=== PATIENT | male | born 1950 | race Caucasian/White ===

== ENCOUNTER 2024-02-05 12:40 | Emergency (ER) | payer MEDICARE, OTHER, SELFPAY ==
[2024-02-05] VITALS (14 sets, daily range): BP systolic 97–122; BP diastolic 62–90; PULSE 56–86; RESP 18–24; TEMP 36.6–36.7; O2SAT 93–100; BMI 22.4
--- NOTE | 2024-02-05 12:41 | ED_ITS ---
Discharge Plan Disposition Patient Disposition: Xfer Other Referrals Follow up/Referrals: Provider,Referral, [Primary Care Provider] - See instructions Clinical Impressions Clinical Impression: Acute hypoxic respiratory failure, PVD (peripheral vascular disease), Acute exacerbation of chronic obstructive pulmonary disease, Bilateral lower leg cellulitis, JAQUELIN (acute kidney injury), Uremic encephalopathy Stand Alone Forms Stand Alone Forms: Transfer Record - ED Instructions Patient Instructions: DI for Laceration Repair Discharge ED Provider: Jacques Cormier Adult HPI <Jacques Cormier MD - Last Filed: 02/06/24 07:21> General Chief complaint: Wound/Laceration Stated complaint: wound Time Seen by Provider: 02/05/24 12:41 History of Present Illness HPI narrative: Patient presents after being found altered at home after unspecified amount of time. History limited secondary to acuity of patient condition and altered mental status. Medical history unknown. Patient states he takes blood thinners sometimes. Patient denies any pain at this time. Patient was found reportedly by neighbors who noticed lower extremity wounds covered with maggots. He does report recent fall although time in which this occurred unknown. Denies any abdominal pain. Denies any neck pain, denies any chest pain. Please note that above description of symptoms, in this electronic medical record under categorization of recalled from ER triage doctor by RN are reflective of an initial nursing assessment, however, is not reflective of my full history and physical exam that was personally taken and clarified. Consequentially, this preceding description of symptoms, which may include the patient's categorized chief complaint in the EMR, do not reflect my personal clinical impression, and the ultimate description of history of present illness and patient stated complaints should be deferred to this section of the note. Unless stated otherwise or congruent with this section of the note, additional signs, symptoms, or incongruence should be interpreted as inaccurate with my clinical impression. Related Data Allergies Allergy/AdvReac Type Severity Reaction Status Date / Time Unable to Assess Allergy Verified 02/05/24 13:34 PFSH <Jacques Cormier MD - Last Filed: 02/06/24 07:21> PFS Disclaimer: The information contained in this section may have been updated after the patient was seen, as this information can be updated by other users. Social History (Updated 02/05/24 @ 17:23 by Pasha Medina MD) Smoking Status: Current every day smoker alcohol intake: former current occupational status: unemployed Travel in the last 8 weeks: None <Jacques Cormier MD - Last Filed: 02/06/24 07:21> ROS Obtained: Yes other As per HPI Physical Exam <Jacques Cormier MD - Last Filed: 02/06/24 07:21> General Comment: Disoriented, ill-appearing Head Head exam: atraumatic and normocephalic Eye Eye exam: Present other (Left periorbital ecchymosis) Neck Neck exam: Present normal inspection Chest Chest inspection: Present normal inspection and symmetric chest wall rise Respiratory Respiratory exam: Present normal lung sounds bilaterally and wheezes Cardiovascular Cardiovascular exam: Present normal rhythm and tachycardia Abdominal Exam Abdominal exam: Present soft; Absent tenderness Neurological Exam Neurological exam: Present alert Skin Skin exam: Present other (Wounds on bilateral feet, legs, erythema, covered with maggots, diffusely tender to palpation.) <Haile Jennings MD - Last Filed: 02/05/24 17:52> General General appearance: in no apparent distress Medical Decision Making <Jacques Cormier MD - Last Filed: 02/06/24 07:21> Medical Records Medical records reviewed: Yes I reviewed the patient's medical records. [place] Inquiry Pt receiving controlled substance: No Vital Signs: 02/05/24 12:40 02/05/24 12:51 02/05/24 13:05 Temperature 97.9 F Temperature Source Oral Pulse Rate 56 L 77 Pulse Rate [Left Radial] 81 Respiratory Rate 19 Blood Pressure 108/67 L 116/75 Blood Pressure [Right Arm] 116/75 Blood Pressure Mean 82 Blood Pressure Mean [Right Arm] 88 02 Sat by Pulse Oximetry 100 100 100 Oxygen Delivery Method Room Air Oxygen Flow Rate (LPM) 02/05/24 13:30 02/05/24 14:00 02/05/24 15:17 Temperature Temperature Source Pulse Rate 81 77 85 Pulse Rate [Left Radial] Respiratory Rate Blood Pressure 116/71 111/71 101/67 L Blood Pressure [Right Arm] Blood Pressure Mean Blood Pressure Mean [Right Arm] 02 Sat by Pulse Oximetry 100 100 93 L Oxygen Delivery Method Oxygen Flow Rate (LPM) 02/05/24 15:30 02/05/24 16:00 02/05/24 16:31 Temperature Temperature Source Pulse Rate 82 84 86 Pulse Rate [Left Radial] Respiratory Rate 24 24 23 Blood Pressure 115/81 121/72 122/90 Blood Pressure [Right Arm] Blood Pressure Mean Blood Pressure Mean [Right Arm] 02 Sat by Pulse Oximetry 97 97 96 Oxygen Delivery Method Oxygen Flow Rate (LPM) 02/05/24 17:00 02/05/24 17:30 02/05/24 18:01 Temperature Temperature Source Pulse Rate 86 85 Pulse Rate [Left Radial] Respiratory Rate 22 23 22 Blood Pressure 118/75 121/79 100/63 L Blood Pressure [Right Arm] Blood Pressure Mean Blood Pressure Mean [Right Arm] 02 Sat by Pulse Oximetry 97 96 Oxygen Delivery Method Oxygen Flow Rate (LPM) 02/05/24 19:00 02/05/24 20:54 Temperature 98.0 F Temperature Source Pulse Rate 80 Pulse Rate [Left Radial] Respiratory Rate 18 20 Blood Pressure 110/76 97/62 L Blood Pressure [Right Arm] Blood Pressure Mean Blood Pressure Mean [Right Arm] 02 Sat by Pulse Oximetry Oxygen Delivery Method Nasal Cannula Oxygen Flow Rate (LPM) 4 Lab Data Lab Results 02/05/24 12:50: WBC 10.0, RBC 4.01 L, Hgb 12.8 L, Hct 38.2 L, MCV 95.1 H, MCH 31.9 H, MCHC 33.5, RDW 15.5, Plt Count 146, MPV 9.2, Neut % (Auto) 91.8 H, Lymph % (Auto) 4.7 L, [place] % (Auto) 2.8, Eos % (Auto) 0.6, Baso % (Auto) 0.1, Neut # (Auto) 9.2 H, Lymph # (Auto) 0.5 L, [place] # (Auto) 0.3, Eos # (Auto) 0.1, Baso # (Auto) 0.0, Total Counted 100, Neutrophils % (Manual) 96 H, Lymphocytes % (Manual) 2 L, Monocytes % (Manual) 2, Platelet Estimate Slight decrease, RBC Morphology Normal, PT 10.5, INR 0.93, Sodium 126 L, Potassium 5.2 H, Chloride 94 L, Carbon Dioxide 20 L, Anion Gap 17.2 H, BUN 118 H*, Creatinine 2.50 H, Estimated Creat Clear 27, Estimated GFR 25 L, Est GFR ( Amer) 31 L, G lucose 127 H, Lactate 3.8 H, Calcium 9.1, Magnesium 2.4 H, Total Bilirubin 1.7 H , AST 33, ALT 41, Alkaline Phosphatase 91, Total Creatine Kinase 94, NT-Pro-B Natriuret Pep 56635 H, Total Protein 6.5, Albumin 3.4 L, Globulin 3.1, Albumin/Globulin Ratio 1.1, TSH 2.61, Free T4 0.96, Salicylates < 1.0 L, A cetaminophen < 10 L, Plasma/Serum Alcohol < 10 02/05/24 13:25: Blood Type O Positive, Antibody Screen Negative 02/05/24 13:28: VBG pH 7.31, VBG pCO2 38.4, VBG pO2 29.9, VBG HCO3 19.0 L, VBG Total CO2 20.2 L, VBG O2 Saturation 53.4, VBG Base Excess -7.2 L, VBG Lactic Acid 3.9 H 02/05/24 16:24: Urine Color Yellow, Urine Appearance Clear, Urine pH 5.5, Ur Specific [place] 1.020, Urine Protein Trace, Urine Glucose (UA) Negative, Urine Ketones Negative, Urine Blood 3+, Urine Nitrate Negative, Urine Bilirubin 1+ A, Urine Urobilinogen 1.0, Ur Leukocyte Esterase 1+ A, Urine RBC 10-20, Urine WBC 3-5, Ur Squamous Epith Cells 3-5, Urine Bacteria None, Fine Granular Casts Occasional, Urine Opiates Screen Negative, Urine Methadone Screen Negative, Ur Barbituates Screen Negative, Ur Phencyclidine Scrn Negative, Ur Amphetamines Screen Negative, U Benzodiazepines Scrn Negative, Urine Cocaine Screen Negative, U Marijuana (THC) Screen Negative 02/05/24 17:35: Potassium 4.4, Lactate 1.8 02/05/24 12:50 02/05/24 17:35 Orders (Tests/Meds): ED MEDICATIONS Discontinued Medications Generic Name Dose Route Start Last Admin Trade Name Freq PRN Reason Stop Dose Admin Lactated Ringer's 1,000 mls @ 999 mls/hr 02/05/24 13:21 02/05/24 13:40 Lactated Ringer's 1000 Ml Bag IV 02/05/24 14:21 999 mls/hr .Q1H1M ONE Administration Vancomycin HCl 1,500 mg/ 250 mls @ 125 mls/hr 02/05/24 13:43 02/05/24 14:13 Sodium Chloride IV 02/05/24 13:44 Not Given ONCE STA Vancomycin/PEG/NADA/Lysine/Water 1.5 gm in 300 mls @ 150 mls/hr 02/05/24 13:45 02/05/24 13:53 Vancomycin 1.5gm/300ml (Peg) Premix IV 02/05/24 15:44 150 mls/hr ONCE ONE Administration Magnesium Sulfate 2 gm in 50 mls @ 50 mls/hr 02/05/24 13:58 02/05/24 14:13 Magnesium Sulfate 2gm/50ml Premix IV 02/05/24 14:57 Not Given ONCE ONE Piperacillin Sod/Tazobactam 100 mls @ 200 mls/hr 02/05/24 14:09 02/05/24 14:28 Sod 4.5 gm/ Sodium Chloride IV 02/05/24 14:38 Not Given ONCE ONE Piperacillin Sod/Tazobactam 100 mls @ 200 mls/hr 02/05/24 14:30 02/05/24 14:30 Sod 4.5 gm/ Sodium Chloride IV 02/15/24 14:29 Not Given Q6H AUBREY Piperacillin Sod/Tazobactam 100 mls @ 200 mls/hr 02/05/24 14:29 02/05/24 14:30 Sod 4.5 gm/ Sodium Chloride IV 02/05/24 14:58 200 mls/hr ONCE ONE Administration Calcium Gluconate/Sodium Chloride 1 gm in 50 mls @ 50 mls/hr 02/05/24 15:40 02/05/24 16:09 Calcium Gluconate 1,000mg/50ml Nacl Premix IV 02/05/24 16:39 50 mls/hr ONCE ONE Administration Tetanus/Reduced Diphtheria/Acell Pertussis 0.5 ml 02/05/24 13:01 02/05/24 13:39 Tet/Diphth/Pert-Adult 0.5ml Syringe IM 02/05/24 13:02 0.5 ml .ONCE ONE Administration ORDERS Category Date Time Status Type and Screen Stat BBK 02/05/24 13:[address] abdomen pelvis wo con Stat Cat Scan 02/05/24 14:[address] bony pelvis Stat Cat Scan 02/05/24 12:[address] cervical spine wo con Stat Cat Scan 02/05/24 12:[address] chest wo con Stat Cat Scan 02/05/24 14:[address] head/brain wo con Stat Cat Scan 02/05/24 12:[address] lumbar spine wo con Stat Cat Scan 02/05/24 12:[address] thoracic spine wo con Stat Cat Scan 02/05/24 12:45 Completed XR ankle LT min 3V Stat Exams 02/05/24 12:44 Completed XR ankle RT min 3V Stat Exams 02/05/24 12:44 Completed XR foot LT min 3V Stat Exams 02/05/24 12:44 Completed XR foot RT min 3V Stat Exams 02/05/24 12:44 Completed Acetaminophen Stat Lab 02/05/24 12:50 Completed BNP [NT Pro Brain Natriuretic Pep.] Stat Lab 02/05/24 12:50 Completed CBC w/Auto Diff [Complete Blood Count Auto Diff] Stat Lab 02/05/24 12:50 Completed CK [Creatine Kinase] Stat Lab 02/05/24 12:50 Completed CMP [Comprehensive Metabolic Panel] Stat Lab 02/05/24 12:50 Completed Drug Screen,Urine Stat Lab 02/05/24 16:24 Completed Ethanol [Ethyl Alcohol] Stat Lab 02/05/24 12:50 Completed Free T4 (Free Thyroxine) Stat Lab 02/05/24 12:50 Completed Lactic Acid Follow Up (RFLX 1) Stat Lab 02/05/24 17:35 Completed Lactic Acid Stat Lab 02/05/24 12:50 Completed MAG [Magnesium] Stat Lab 02/05/24 12:50 Completed PT INR [Prothrombin Time INR] Stat Lab 02/05/24 12:50 Completed Potassium Stat Lab 02/05/24 17:35 Completed Salicylate Stat Lab 02/05/24 12:50 Completed TSH [Thyroid Stimulating Hormone] Stat Lab 02/05/24 12:50 Completed Urinalysis and Microscopic Stat Lab 02/05/24 16:24 Completed Blood Culture Stat Micro 02/05/24 12:50 Received Urine Culture Stat Micro 02/05/24 16:24 Received VBG [Venous Blood Gas] Stat RT 02/05/24 13:28 Completed Medical Decision Narrative: Patient with history and exam per above presenting for evaluation of altered mental status, bilateral lower extremity wounds, fall Diagnoses considered include hypovolemia, electrolyte abnormality, bacteremia, encephalopathy, acidosis, intracranial hemorrhage, fracture, polypharmacy, intoxication, among others ED workup included: CBC, CMP, urinalysis, UDS, VBG, lactic acid, acetaminophen level, salicylate level, TSH, free T4, ethyl alcohol, CK, magnesium level. Imaging included noncontrast imaging of head, neck, chest, abdomen, pelvis, C- spine, T-spine, L-spine. X-rays of bilateral feet and lower extremities. Labs were independently interpreted by me, significant for hyperkalemia in the absence of acidosis, lactic acid elevated to 3.8, acetaminophen, salicylate, ethyl alcohol levels, undetectable. CK within normal limits at this time at 94. BUN 118, with creatinine 2.50. Potassium 5.2, sodium 126, glucose 127. BNP 50,900. Imaging was independently visualized and interpreted by me, significant for no acute surgical pathology. [id number] ultrasound was performed by me revealing cardiomegaly with left heart systolic dysfunction. IVC collapsible, no B-lines at this time. Patient was treated with vancomycin, Zosyn, IV, calcium gluconate, 1 L IV fluid administered in addition to initial IV fluid liter administered by EMS. At this time care was transferred to incoming physician. Reassessment this is Dr. Jennings I took over from Dr. Peralta pending Dr. Medina's in person evaluation. After Dr. Medina evaluated this patient and further spoke to me he and I both agreed that the patient has a multidisciplinary need which may include pulmonology, nephrology, vascular surgery etc. Therefore we felt that the patient would not be best served at our hospital. I spoke with Dr. Vaughan in the ICU at [facility] who accepted the patient for further evaluation and management. <Haile Jennings MD - Last Filed: 02/05/24 17:52> Vital Signs: 02/05/24 12:40 02/05/24 12:51 02/05/24 13:05 Temperature 97.9 F Temperature Source Oral Pulse Rate 56 L 77 Pulse Rate [Left Radial] 81 Respiratory Rate 19 Blood Pressure 108/67 L 116/75 Blood Pressure [Right Arm] 116/75 Blood Pressure Mean 82 Blood Pressure Mean [Right Arm] 88 02 Sat by Pulse Oximetry 100 100 100 Oxygen Delivery Method Room Air Oxygen Flow Rate (LPM) 02/05/24 13:30 02/05/24 14:00 02/05/24 15:17 Temperature Temperature Source Pulse Rate 81 77 85 Pulse Rate [Left Radial] Respiratory Rate Blood Pressure 116/71 111/71 101/67 L Blood Pressure [Right Arm] Blood Pressure Mean Blood Pressure Mean [Right Arm] 02 Sat by Pulse Oximetry 100 100 93 L Oxygen Delivery Method Oxygen Flow Rate (LPM) 02/05/24 15:30 02/05/24 16:00 02/05/24 16:31 Temperature Temperature Source Pulse Rate 82 84 86 Pulse Rate [Left Radial] Respiratory Rate 24 24 23 Blood Pressure 115/81 121/72 122/90 Blood Pressure [Right Arm] Blood Pressure Mean Blood Pressure Mean [Right Arm] 02 Sat by Pulse Oximetry 97 97 96 Oxygen Delivery Method Oxygen Flow Rate (LPM) 02/05/24 17:00 02/05/24 17:30 02/05/24 18:01 Temperature Temperature Source Pulse Rate 86 85 Pulse Rate [Left Radial] Respiratory Rate 22 23 22 Blood Pressure 118/75 121/79 100/63 L Blood Pressure [Right Arm] Blood Pressure Mean Blood Pressure Mean [Right Arm] 02 Sat by Pulse Oximetry 97 96 Oxygen Delivery Method Oxygen Flow Rate (LPM) 02/05/24 19:00 02/05/24 20:54 Temperature 98.0 F Temperature Source Pulse Rate 80 Pulse Rate [Left Radial] Respiratory Rate 18 20 Blood Pressure 110/76 97/62 L Blood Pressure [Right Arm] Blood Pressure Mean Blood Pressure Mean [Right Arm] 02 Sat by Pulse Oximetry Oxygen Delivery Method Nasal Cannula Oxygen Flow Rate (LPM) 4 Lab Data Lab results reviewed: Yes I reviewed the patient's lab results. Lab Results 02/05/24 12:50: WBC 10.0, RBC 4.01 L, Hgb 12.8 L, Hct 38.2 L, MCV 95.1 H, MCH 31.9 H, MCHC 33.5, RDW 15.5, Plt Count 146, MPV 9.2, Neut % (Auto) 91.8 H, Lymph % (Auto) 4.7 L, [place] % (Auto) 2.8, Eos % (Auto) 0.6, Baso % (Auto) 0.1, Neut # (Auto) 9.2 H, Lymph # (Auto) 0.5 L, [place] # (Auto) 0.3, Eos # (Auto) 0.1, Baso # (Auto) 0.0, Total Counted 100, Neutrophils % (Manual) 96 H, Lymphocytes % (Manual) 2 L, Monocytes % (Manual) 2, Platelet Estimate Slight decrease, RBC Morphology Normal, PT 10.5, INR 0.93, Sodium 126 L, Potassium 5.2 H, Chloride 94 L, Carbon Dioxide 20 L, Anion Gap 17.2 H, BUN 118 H*, Creatinine 2.50 H, Estimated Creat Clear 27, Estimated GFR 25 L, Est GFR ( Amer) 31 L, G lucose 127 H, Lactate 3.8 H, Calcium 9.1, Magnesium 2.4 H, Total Bilirubin 1.7 H , AST 33, ALT 41, Alkaline Phosphatase 91, Total Creatine Kinase 94, NT-Pro-B Natriuret Pep 00728 H, Total Protein 6.5, Albumin 3.4 L, Globulin 3.1, Albumin/Globulin Ratio 1.1, TSH 2.61, Free T4 0.96, Salicylates < 1.0 L, A cetaminophen < 10 L, Plasma/Serum Alcohol < 10 02/05/24 13:25: Blood Type O Positive, Antibody Screen Negative 02/05/24 13:28: VBG pH 7.31, VBG pCO2 38.4, VBG pO2 29.9, VBG HCO3 19.0 L, VBG Total CO2 20.2 L, VBG O2 Saturation 53.4, VBG Base Excess -7.2 L, VBG Lactic Acid 3.9 H 02/05/24 16:24: Urine Color Yellow, Urine Appearance Clear, Urine pH 5.5, Ur Specific [place] 1.020, Urine Protein Trace, Urine Glucose (UA) Negative, Urine Ketones Negative, Urine Blood 3+, Urine Nitrate Negative, Urine Bilirubin 1+ A, Urine Urobilinogen 1.0, Ur Leukocyte Esterase 1+ A, Urine RBC 10-20, Urine WBC 3-5, Ur Squamous Epith Cells 3-5, Urine Bacteria None, Fine Granular Casts Occasional, Urine Opiates Screen Negative, Urine Methadone Screen Negative, Ur Barbituates Screen Negative, Ur Phencyclidine Scrn Negative, Ur Amphetamines Screen Negative, U Benzodiazepines Scrn Negative, Urine Cocaine Screen Negative, U Marijuana (THC) Screen Negative 02/05/24 17:35: Potassium 4.4, Lactate 1.8 Orders (Tests/Meds): ED MEDICATIONS Discontinued Medications Generic Name Dose Route Start Last Admin Trade Name Freq PRN Reason Stop Dose Admin Lactated Ringer's 1,000 mls @ 999 mls/hr 02/05/24 13:21 02/05/24 13:40 Lactated Ringer's 1000 Ml Bag IV 02/05/24 14:21 999 mls/hr .Q1H1M ONE Administration Vancomycin HCl 1,500 mg/ 250 mls @ 125 mls/hr 02/05/24 13:43 02/05/24 14:13 Sodium Chloride IV 02/05/24 13:44 Not Given ONCE STA Vancomycin/PEG/NADA/Lysine/Water 1.5 gm in 300 mls @ 150 mls/hr 02/05/24 13:45 02/05/24 13:53 Vancomycin 1.5gm/300ml (Peg) Premix IV 02/05/24 15:44 150 mls/hr ONCE ONE Administration Magnesium Sulfate 2 gm in 50 mls @ 50 mls/hr 02/05/24 13:58 02/05/24 14:13 Magnesium Sulfate 2gm/50ml Premix IV 02/05/24 14:57 Not Given ONCE ONE Piperacillin Sod/Tazobactam 100 mls @ 200 mls/hr 02/05/24 14:09 02/05/24 14:28 Sod 4.5 gm/ Sodium Chloride IV 02/05/24 14:38 Not Given ONCE ONE Piperacillin Sod/Tazobactam 100 mls @ 200 mls/hr 02/05/24 14:30 02/05/24 14:30 Sod 4.5 gm/ Sodium Chloride IV 02/15/24 14:29 Not Given Q6H AUBREY Piperacillin Sod/Tazobactam 100 mls @ 200 mls/hr 02/05/24 14:29 02/05/24 14:30 Sod 4.5 gm/ Sodium Chloride IV 02/05/24 14:58 200 mls/hr ONCE ONE Administration Calcium Gluconate/Sodium Chloride 1 gm in 50 mls @ 50 mls/hr 02/05/24 15:40 02/05/24 16:09 Calcium Gluconate 1,000mg/50ml Nacl Premix IV 02/05/24 16:39 50 mls/hr ONCE ONE Administration Tetanus/Reduced Diphtheria/Acell Pertussis 0.5 ml 02/05/24 13:01 02/05/24 13:39 Tet/Diphth/Pert-Adult 0.5ml Syringe IM 02/05/24 13:02 0.5 ml .ONCE ONE Administration ORDERS Category Date Time Status Type and Screen Stat BBK 02/05/24 13:[address] abdomen pelvis wo con Stat Cat Scan 02/05/24 14:[address] bony pelvis Stat Cat Scan 02/05/24 12:[address] cervical spine wo con Stat Cat Scan 02/05/24 12:[address] chest wo con Stat Cat Scan 02/05/24 14:[address] head/brain wo con Stat Cat Scan 02/05/24 12:[address] lumbar spine wo con Stat Cat Scan 02/05/24 12:[address] thoracic spine wo con Stat Cat Scan 02/05/24 12:45 Completed XR ankle LT min 3V Stat Exams 02/05/24 12:44 Completed XR ankle RT min 3V Stat Exams 02/05/24 12:44 Completed XR foot LT min 3V Stat Exams 02/05/24 12:44 Completed XR foot RT min 3V Stat Exams 02/05/24 12:44 Completed Acetaminophen Stat Lab 02/05/24 12:50 Completed BNP [NT Pro Brain Natriuretic Pep.] Stat Lab 02/05/24 12:50 Completed CBC w/Auto Diff [Complete Blood Count Auto Diff] Stat Lab 02/05/24 12:50 Completed CK [Creatine Kinase] Stat Lab 02/05/24 12:50 Completed CMP [Comprehensive Metabolic Panel] Stat Lab 02/05/24 12:50 Completed Drug Screen,Urine Stat Lab 02/05/24 16:24 Completed Ethanol [Ethyl Alcohol] Stat Lab 02/05/24 12:50 Completed Free T4 (Free Thyroxine) Stat Lab 02/05/24 12:50 Completed Lactic Acid Follow Up (RFLX 1) Stat Lab 02/05/24 17:35 Completed Lactic Acid Stat Lab 02/05/24 12:50 Completed MAG [Magnesium] Stat Lab 02/05/24 12:50 Completed PT INR [Prothrombin Time INR] Stat Lab 02/05/24 12:50 Completed Potassium Stat Lab 02/05/24 17:35 Completed Salicylate Stat Lab 02/05/24 12:50 Completed TSH [Thyroid Stimulating Hormone] Stat Lab 02/05/24 12:50 Completed Urinalysis and Microscopic Stat Lab 02/05/24 16:24 Completed Blood Culture Stat Micro 02/05/24 12:50 Received Urine Culture Stat Micro 02/05/24 16:24 Received VBG [Venous Blood Gas] Stat RT 02/05/24 13:28 Completed Medical Decision Narrative: Patient with history and exam per above presenting for evaluation of altered mental status, bilateral lower extremity wounds, fall Diagnoses considered include hypovolemia, electrolyte abnormality, bacteremia, encephalopathy, acidosis, intracranial hemorrhage, fracture, polypharmacy, intoxication, among others ED workup included: CBC, CMP, urinalysis, UDS, VBG, lactic acid, acetaminophen level, salicylate level, TSH, free T4, ethyl alcohol, CK, magnesium level. Imaging included noncontrast imaging of head, neck, chest, abdomen, pelvis, C- spine, T-spine, L-spine. X-rays of bilateral feet and lower extremities. Labs were independently interpreted by me, significant for hyperkalemia in the absence of acidosis, lactic acid elevated to 3.8, acetaminophen, salicylate, ethyl alcohol levels, undetectable. CK within normal limits at this time at 94. BUN 118, with creatinine 2.50. Potassium 5.2, sodium 126, glucose 127. BNP 50,900. Imaging was independently visualized and interpreted by me, significant for no acute surgical pathology. [id number] ultrasound was performed by me revealing cardiomegaly with left heart systolic dysfunction. IVC collapsible, no B-lines at this time. Patient was treated with vancomycin, Zosyn, IV, calcium gluconate, 1 L IV fluid administered in addition to initial IV fluid liter administered by EMS. Reassessment this is Dr. Jennings I took over from Dr. Peralta pending Dr. Medina's in person evaluation. After Dr. Medina evaluated this patient and further spoke to me he and I both agreed that the patient has a multidisciplinary need which may include pulmonology, nephrology, vascular surgery etc. Therefore we felt that the patient would not be best served at our hospital. I spoke with Dr. Vaughan in the ICU at [facility] who accepted the patient for further evaluation and management. Critical Care <Jacques Cormier MD - Last Filed: 02/06/24 07:21> Critical Care Time Critical Care Time: Yes Attestation: On 02/05/24, the high probability of a clinically significant, sudden or life threatening deterioration of the following system(s) required my full and direct attention, intervention and personal management. The time I documented below is in addition to time spent performing reported procedures but includes the following listed in this critical care notation. Total Time Total Critical Care Time: 30 <Haile Jennings MD - Last Filed: 02/05/24 17:52> Critical Care Time Critical Care Time: Yes Attestation: On 02/05/24, the high probability of a clinically significant, sudden or life threatening deterioration of the following system(s) required my full and direct attention, intervention and personal management. The time I documented below is in addition to time spent performing reported procedures but includes the following listed in this critical care notation.
--- NOTE | 2024-02-05 12:44 | CT_ITS ---
FINAL REPORT TECHNIQUE: Thin section axial images were obtained from skull base to vertex without contrast. Coronal reconstruction images were obtained from the axial data. Exam was performed using dose reduction technique. CLINICAL HISTORY: fall, reported blood thinner use, ams FINDINGS: There is age-appropriate atrophy. There is no mass effect or midline shift. There is no intracranial hemorrhage. There is no hydrocephalus. Periventricular low density is likely related to changes of chronic small vessel ischemia. 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 The posterior fossa is without acute abnormality. There are postoperative changes of the left mastoid air cells. No acute osseous abnormality is identified. IMPRESSION: No acute intracranial hemorrhage. Atrophy and changes suggesting chronic small vessel ischemia. 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 Reviewed, Interpreted and Dictated by Jacy Champion MD Transcribed by Gerda Izaguirre Authenticated and [facility]
--- NOTE | 2024-02-05 12:44 | CT_ITS ---
FINAL REPORT TECHNIQUE: Thin section axial images were obtained through the cervical spine without contrast. Multiplanar reconstruction images were obtained from the axial data. Exam was performed using dose reduction techniques. CLINICAL HISTORY: fall, reported blood thinner use, ams FINDINGS: There is no acute fracture or acute malalignment of the cervical spine. There is no evidence of unilateral or bilateral facet lock. Vertebral body height is preserved. There is multilevel degenerative disc disease, most pronounced at C3-4. No acute paraspinal abnormality is identified. IMPRESSION: Multilevel degenerative disc disease. Reviewed, Interpreted and Dictated by Jacy Champion MD Transcribed by Gerda Izaguirre Authenticated and [facility]
--- NOTE | 2024-02-05 12:44 | XR_ITS ---
FINAL REPORT CLINICAL HISTORY: fall, reported blood thinner use, ams FINDINGS: AP, oblique and lateral views of the right foot were obtained. There is no prior exam for comparison. There is no acute fracture or dislocation. There is mild degenerative joint disease. Soft tissues are normal. IMPRESSION: No acute osseous abnormality of the right foot. Reviewed, Interpreted and Dictated by Jacy Champion MD Transcribed by Gerda Izaguirre Authenticated and . [facility]
--- NOTE | 2024-02-05 12:44 | CT_ITS ---
FINAL REPORT TECHNIQUE: Axial images through the pelvis were performed by computed tomography. Sagittal and coronal reformatted images were obtained and reviewed. This study was performed with techniques to keep radiation doses as low as reasonably achievable (ALARA). Individualized dose reduction techniques using automated exposure control or adjustment of mA and/or kV according to the patient's size were employed. CLINICAL HISTORY: fall, reported blood thinner use, ams, ulcer FINDINGS: There is no acute fracture or dislocation. There is degenerative disease of the bilateral hips and sacroiliac joints. There is wall thickening of the descending colon with mild surrounding inflammation, could represent colitis or diverticulitis. There is a 3.2 cm infrarenal abdominal aortic aneurysm. IMPRESSION: Wall thickening of the descending colon, may represent colitis or diverticulitis. Infrarenal abdominal aortic aneurysm. Reviewed, Interpreted and Dictated by Jacy Champion MD Transcribed by Gerda Izaguirre Authenticated and [facility]
--- NOTE | 2024-02-05 12:44 | XR_ITS ---
FINAL REPORT CLINICAL HISTORY: fall, reported blood thinner use, ams FINDINGS: AP, oblique, and lateral views of the right ankle were obtained. There is no prior exam for comparison. There is no fracture or dislocation. The ankle mortise is intact. There is calcification distal to the tip of the lateral malleolus, favor an old avulsion fracture fragment. IMPRESSION: No acute osseous abnormality of the right ankle. Reviewed, Interpreted and Dictated by Jacy Champion MD Transcribed by Gerda Izaguirre Authenticated and [facility]
--- NOTE | 2024-02-05 12:44 | XR_ITS ---
FINAL REPORT CLINICAL HISTORY: fall, reported blood thinner use, ams FINDINGS: AP, oblique, and lateral views of the left ankle were obtained. There is no prior exam for comparison. There is no fracture or dislocation. The ankle mortise is intact. Soft tissues are normal. IMPRESSION: No acute osseous abnormality of the left ankle. Reviewed, Interpreted and Dictated by Jacy Champion MD Transcribed by Gerda Izaguirre Authenticated and [facility]
--- NOTE | 2024-02-05 12:44 | XR_ITS ---
FINAL REPORT CLINICAL HISTORY: wound, reported fall FINDINGS: AP, oblique and lateral views of the left foot were obtained. There is no prior exam for comparison. There is no acute fracture or dislocation. There is mild degenerative joint disease. Soft tissues are normal. IMPRESSION: No acute osseous abnormality of the left foot. Reviewed, Interpreted and Dictated by Jacy Champion MD Transcribed by Gerda Izaguirre Authenticated and [facility]
--- NOTE | 2024-02-05 12:45 | CT_ITS ---
FINAL REPORT TECHNIQUE: Thin section axial images were obtained through the thoracic spine without contrast. Sagittal and coronal images were obtained from the axial data. CLINICAL HISTORY: fall, reported blood thinner use, ams FINDINGS: There is no acute fracture of the thoracic spine. There is no malalignment. There is multilevel degenerative disc disease. There is a 4 cm ascending aortic aneurysm.. IMPRESSION: Multilevel degenerative disc disease. Ascending aortic aneurysm. Reviewed, Interpreted and Dictated by Jacy Champion MD Transcribed by Gerda Izaguirre Authenticated and [facility]
--- NOTE | 2024-02-05 12:45 | CT_ITS ---
FINAL REPORT TECHNIQUE: Thin section axial images were obtained through the lumbar spine without contrast. Sagittal and coronal reconstruction images were obtained from the axial data. Exam was performed using dose reduction techniques. CLINICAL HISTORY: fall, reported blood thinner use, ams FINDINGS: There is no acute fracture of the lumbar spine. Vertebral body height is preserved. There is grade 1 anterior spondylolisthesis of L3 on 4. Mild levoscoliosis is identified. There is multilevel degenerative disc disease. There is no significant central stenosis. Paraspinal soft tissues are within normal limits. There is no paraspinal mass or fluid collection. IMPRESSION: Multilevel degenerative disc disease. Reviewed, Interpreted and Dictated by Jacy Champion MD Transcribed by Gerda Izaguirre Authenticated and [facility]
[2024-02-05 13:04] LABS: Basophils % 0.1 % (0.1-2.0); Eosinophils # 0.1 K/mm3 (0.0-0.4); Eosinophils % 0.6 % (0.1-12.0); Hematocrit 38.2 % (42.0-52.0); Hemoglobin 12.8 g/dL (14.1-18.0); Lymphocytes # 0.5 K/mm3 (0.7-4.5); Lymphocytes % 4.7 % (10-50); Mean Corpuscular HGB Conc 33.5 g/dL (31.8-35.4); Mean Corpuscular Hemoglobin 31.9 pg (27.0-31.2); Mean Corpuscular Volume 95.1 fl (80-94); Mean Platelet Volume 9.2 fl (7.4-10.4); Monocytes # 0.3 K/mm3 (0.1-1.0); Monocytes % 2.8 % (1.7-9.3); Neutrophils # 9.2 K/mm3 (1.8-7.8); Neutrophils % 91.8 % (37.0-80.0); Platelet Count 146 K/mm3 (142-424); Red Blood Count 4.01 M/mm3 (4.60-6.20); Red Cell Distribution Width 15.5 % (11.5-17.5)
[2024-02-05 13:06] LABS: MANUAL DIFFERENTIAL MANUAL DIFFERENTIAL (MANUAL DIFF)
--- NOTE | 2024-02-05 13:14 | PC.NURSE ---
pt arrived by ems soiled with stool and urine, numerous maggots were found on bilateral feet embedded under toes. Multiple staff members washed pt, feet were submerged in betadine solution. Pt placed in gown and resting in bed at this time. unstageable wounds noted on bilateral buttocks with multiple open areas. Pt has new kerlex wrapped on bilateral legs upon arrival to ER, pt states that he lives at home alone with no family alive, pt states that home health wrapped his legs 2 days ago. pt alert and orientated x4. aware of the above information and present at bs during assessment.
[2024-02-05 13:17] LABS: Lactic Acid 3.8 mmol/L (0.7-2.1)
[2024-02-05 13:36] LABS: VBG Base Excess -7.2 mmol/L (-2.4-2.3); VBG Oxygen Saturation 53.4 % (50-70); VBG PCO2 38.4 mmol/L (35-51); VBG PH 7.31 mmol/L (7.31-7.41); VBG PO2 29.9 mmol/L (28-40); VBG Total CO2 20.2 mmol/L (23-27)
[2024-02-05 13:38] LABS: Lactate Venous 3.9 mmol/L (0.4-2.0)
[2024-02-05 13:39] LABS: Free T4 (Free Thyroxine) 0.96 ng/dl (0.78-2.19); Lymphocytes % 2 % (10-50); Monocytes % 2 % (2-9); Neutrophils % 96 % (42-76); Platelet Estimate Slight Decrease; RBC Morphology Normal; Total Cells Counted 100
[2024-02-05] MEDS: TET/DIPHTH/PERT-ADULT 0.5ML SYRINGE 0.5 ML IM (13:39)
[2024-02-05] MEDS: LACTATED RINGERS 1000ML 1,000 ML 999 ML IV (13:40)
[2024-02-05 13:51] LABS: Chloride 94 mmol/L (98-107); Potassium 5.2 mmoL/L (3.5-5.1); Sodium 126 mmol/L (136-145)
--- NOTE | 2024-02-05 13:51 | PC.NURSE ---
this nurse has called several home health agencies to retrieve info on pt; [facility]
[2024-02-05] MEDS: VANCOMYCIN/WATER FOR INJ (PEG) 1.5 GM/300 ML PIGGYBACK IV (13:53)
[2024-02-05 13:54] LABS: Alanine Aminotransferase 41 U/L (12-78); Albumin Level 3.4 g/dl (3.5-5.0); Albumin/Globulin Ratio 1.1 (1.1-1.8); Alkaline Phosphatase 91 U/L (38-126); Anion Gap 17.2 mEq/L (5-15); Aspartate Amino Transferase 33 U/L (17-59); Bilirubin,Total 1.7 mg/dl (0.2-1.3); Calcium 9.1 mg/dl (8.4-10.2); Carbon Dioxide 20 mmol/L (22.0-30.0); Creatine Kinase 94 U/L (55-170); Globulin 3.1 g/dL (1.3-3.2); Glucose 127 mg/dl (74-100); Magnesium 2.4 mg/dl (1.6-2.3); Total Protein,Serum 6.5 g/dl (6.3-8.2)
[2024-02-05 13:55] LABS: Acetaminophen < 10 ug/ml (10-30)
[2024-02-05 14:00] LABS: Creatinine Clearance Estimated 27 mL/min (50-200); Estimated Glomerular Filt Rate 25 ml/min (>60); GFR (African American) 31 ML/MIN (>60)
[2024-02-05 14:02] LABS: Blood Urea Nitrogen 118 mg/dl (9-20); Salicylate < 1.0 mg/dL (2.0-20.0)
--- NOTE | 2024-02-05 14:02 | PC.NURSE ---
notified of BUN 118.
--- NOTE | 2024-02-05 14:05 | ECG_ITS ---
APPROVED REPORT Exam: Resting ECG HR:76 bpm ECG Measurements Heart Rate 76 AXES DC 161 P 73 QRSd 114 QRS 67 QT 392 T -57 QTc 422 Conclusion SINUS RHYTHM POSSIBLE LEFT ATRIAL ENLARGEMENT [-0.1mV P-WAVE IN V1/V2] MODERATE INTRAVENTRICULAR CONDUCTION DELAY [110+ ms QRS DURATION] ST DEVIATION AND MODERATE T-WAVE ABNORMALITY, CONSIDER LATERAL ISCHEMIA [-0.1+ mV T-WAVE IN I/aVL/V5/V6] ST DEVIATION AND MODERATE T-WAVE ABNORMALITY, CONSIDER INFERIOR ISCHEMIA [-0.1+ mV T-WAVE IN II/aVF] ABNORMAL ECG Electronically signed by : TRE BOBO, 02/06/2024 04:35:19
--- NOTE | 2024-02-05 14:08 | CT_ITS ---
FINAL REPORT TECHNIQUE: Thin section axial images were obtained from the lung apices through the upper abdomen without contrast. This study was performed with techniques to keep radiation doses as low as reasonably achievable (ALARA). Individualized dose reduction techniques using automated exposure control or adjustment of mA and/or kV according to the patient's size were employed. CLINICAL HISTORY: fall, ams FINDINGS: There is no axillary adenopathy. There is a mildly enlarged AP window lymph node measuring 22 mm. No hilar adenopathy is identified. No pleural or pericardial effusion. There is prominent coronary artery calcification. There is cardiomegaly with left ventricular enlargement. There are innumerable bilateral predominantly ground-glass nodules. Lower lobe predominance is favored to be infectious or inflammatory. There is no acute osseous abnormality. IMPRESSION: Innumerable bilateral ground-glass nodules, favor infectious or inflammatory but aspiration is not excluded. Recommend 2 -3 month follow-up. Cardiomegaly with left ventricular enlargement. Reviewed, Interpreted and Dictated by Jacy Champion MD Transcribed by Gerda Izaguirre Authenticated and [facility]
--- NOTE | 2024-02-05 14:08 | CT_ITS ---
FINAL REPORT TECHNIQUE: Axial images through the abdomen and pelvis were performed without contrast. This study was performed with techniques to keep radiation doses as low as reasonably achievable, (ALARA). Individualized dose reduction techniques using automated exposure control or adjustment of mA and/or kV according to the patient's size were employed. CLINICAL HISTORY: fall, ams FINDINGS: ABDOMEN: Limited images of the liver are unremarkable. The gallbladder is present with sludge or small stones. The spleen is normal. The right adrenal gland is normal. There is a small left adrenal nodule measuring 13 mm. The stomach is distended. There is fluid in the distal esophagus consistent with reflux. There is a infrarenal abdominal aortic aneurysm measuring 3.4 cm. There is no significant free fluid or adenopathy. Left renal stone measures 7 mm. There is no hydronephrosis. There is no evidence of small-bowel obstruction. PELVIS: The appendix is normal. There is long segment wall thickening of the descending colon with surrounding abnormal attenuation, favor colitis. There is diverticulosis without evidence of diverticulitis. The prostate is enlarged. The urinary bladder is unremarkable. There is no significant free fluid or adenopathy. IMPRESSION: Long segment wall thickening of the descending colon, favor colitis. Distended stomach with fluid in the distal esophagus consistent with reflux. Left renal stone. Infrarenal abdominal aortic aneurysm. Reviewed, Interpreted and Dictated by Jacy Champion MD Transcribed by Gerda Izaguirre Authenticated and [facility]
[2024-02-05 14:25] LABS: Thyroid Stimulating Hormone 2.61 uIU/mL (0.465-4.68)
[2024-02-05 14:27] LABS: Ethyl Alcohol < 10 mg/dl (0-10)
[2024-02-05] MEDS: PIPERACILLIN/TAZO 4.5 GM in 0.9 % SODIUM CHLORIDE 100 ML IV (14:30)
[2024-02-05 14:32] LABS: INR 0.93 (0.9-1.1); Prothrombin Time 10.5 seconds (10.1-12.5)
[2024-02-05 14:38] LABS: NT Pro Brain Natriuretic Pep. 50900 pg/mL (0-125)
--- NOTE | 2024-02-05 15:58 | PC.NURSE ---
[facility]
--- NOTE | 2024-02-05 16:07 | PC.NURSE ---
[facility] called [facility] at this time. aware
[2024-02-05] MEDS: CALCIUM GLUC IN NACL, ISO-OSM 1 GM/50 ML BAG IV (16:09)
[2024-02-05 16:39] LABS: Microscopic, Urine URINE MICROSCOPIC (MICROSCOPIC)
[2024-02-05 16:47] LABS: Appearance,Urine CLEAR (Clear); Blood, Urine 3+ (Negative); Color,Urine YELLOW (Yellow); Glucose,Urine (UA) Negative (Negative); Ketones,Urine Negative (Negative); Leukocyte Esterase,Urine 1+ (Negative); Nitrate,Urine Negative (Negative); PH,Urine 5.5 (5.0-8.5); Protein,Urine TRACE (Negative)
[2024-02-05 16:48] LABS: Bilirubin,Urine 1+ (Negative)
--- NOTE | 2024-02-05 16:55 | P.CONS_ITS ---
History of Present Illness *Admission Date: 02/05/24 *Reason for visit:: sepsis, cellulitis, renal failure *History of present illness: Mr. Meadows is a 73-year-old male who presented to [facility] via EMS from his home after being found down by neighbors. Difficulty obtaining history from patient. He is confused on timeline. Knows his name and that he is at the hospital, unable to provide significant history otherwise. In the ER, history obtained through EMS and patient. He reportedly had a fall several days to a week ago, sustaining a head injury. Has been having some swelling in his legs, noted to have confusion when neighbors checked on him. Patient found to be in significant disheveled state. Unable to obtain significant past medical history from patient. Med list unknown at this time as [facility] and we cannot access it at this time. He denies any dimirti pain. Does not appear to have much pain when touching his legs. He is requiring 4 L oxygen which he states is new for him. Found to have significant lower extremity wounds draining purulent material. Wounds infested by maggots on initial arrival. Decontaminated prior to medicine consultation. Also reportedly has significant decubitus wound on his sacrum. Reports he smokes 1 to 2 packs of cigarettes a day. Lives for the most part by himself but has a stepson that checks on him per his report. Patient is afebrile. He is tachypneic over organ to on workup in the ER for. Concern for severe sepsis with JAQUELIN, BUN 118. Tachypneic with respiratory rate of 24 with new oxygen requirement. Significant cellulitis in his legs. Mottling noted on exam concerning for peripheral vascular disease. Medicine consulted to evaluate for possible admission versus transfer. [facility] Disclaimer: The information contained in this section may have been updated after the patient was seen, as this information can be updated by other users. Social History (Updated 02/05/24 @ 17:23 by Pasha Medina MD) Smoking Status: Current every day smoker alcohol intake: former current occupational status: unemployed Travel in the last 8 weeks: None Review of Systems Review of Systems Review of systems:: unable to obtain (Due to patient's confusion. Difficulty obtaining history) Exam Data for Last 24 hours Vital signs and Labs for Last 24 Hours: Temp Pulse Resp BP Pulse Ox O2 Del Method 97.9 F 84 24 121/72 97 Room Air 02/05/24 12:40 02/05/24 16:00 02/05/24 16:00 02/05/24 16:00 02/05/24 16:00 02/05/24 12:40 Laboratory Results - last 24 hr 02/05/24 12:50: WBC 10.0, RBC 4.01 L, Hgb 12.8 L, Hct 38.2 L, MCV 95.1 H, MCH 31.9 H, MCHC 33.5, RDW 15.5, Plt Count 146, MPV 9.2, Neut % (Auto) 91.8 H, Lymph % (Auto) 4.7 L, [place] % (Auto) 2.8, Eos % (Auto) 0.6, Baso % (Auto) 0.1, Neut # (Auto) 9.2 H, Lymph # (Auto) 0.5 L, [place] # (Auto) 0.3, Eos # (Auto) 0.1, Baso # (Auto) 0.0, Total Counted 100, Neutrophils % (Manual) 96 H, Lymphocytes % (Manual) 2 L, Monocytes % (Manual) 2, Platelet Estimate Slight decrease, RBC Morphology Normal, PT 10.5, INR 0.93, Sodium 126 L, Potassium 5.2 H, Chloride 94 L, Carbon Dioxide 20 L, Anion Gap 17.2 H, BUN 118 H*, Creatinine 2.50 H, Estimated Creat Clear 27, Estimated GFR 25 L, Est GFR ( Amer) 31 L, G lucose 127 H, Lactate 3.8 H, Calcium 9.1, Magnesium 2.4 H, Total Bilirubin 1.7 H , AST 33, ALT 41, Alkaline Phosphatase 91, Total Creatine Kinase 94, NT-Pro-B Natriuret Pep 46344 H, Total Protein 6.5, Albumin 3.4 L, Globulin 3.1, Albumin/Globulin Ratio 1.1, TSH 2.61, Free T4 0.96, Salicylates < 1.0 L, A cetaminophen < 10 L, Plasma/Serum Alcohol < 10 02/05/24 13:25: Blood Type O Positive, Antibody Screen Negative 02/05/24 13:28: VBG pH 7.31, VBG pCO2 38.4, VBG pO2 29.9, VBG HCO3 19.0 L, VBG Total CO2 20.2 L, VBG O2 Saturation 53.4, VBG Base Excess -7.2 L, VBG Lactic Acid 3.9 H 02/05/24 16:24: Urine Color Yellow, Urine Appearance Clear, Urine pH 5.5, Ur Specific [place] 1.020, Urine Protein Trace, Urine Glucose (UA) Negative, Urine Ketones Negative, Urine Blood 3+, Urine Nitrate Negative, Urine Bilirubin 1+ A, Urine Urobilinogen 1.0, Ur Leukocyte Esterase 1+ A I & O for Last 24 hours: Intake & Output 02/02/24 02/03/24 02/04/24 02/05/24 23:59 23:59 23:59 23:59 Weight 73.028 kg Constitutional Constitutional: moderate distress, cachectic, chronically ill appearing and disheveled *Routine HEENT Exam Head: Present normocephalic; Absent atraumatic Eye: Present EOMI and PERRL ENT: Present mucous membranes dry Comments: Significant bruising left forehead and gnosticism with bruising around left eye and abrasion on forehead. *Routine Neck Exam Neck: Present supple; Absent lymphadenopathy Routine Chest/Breast/Axilla Exam Chest wall: Absent tenderness Comments: Prominent ribs *Routine Respiratory Exam Respiratory: Present accessory muscle use, prolonged expiratory phase, rhonchi and wheezes; Absent crackles Comments: Tachypneic *Routine Cardiovascular Exam Cardiovascular: Present RRR; Absent murmur Comments: Difficult to hear heart sounds due to rhonchi and wheeze *Routine Abdominal Exam Abdominal: Present soft and normoactive bowel sounds; Absent tenderness or distended Comments: Scaphoid abdomen *Routine Rectal Exam Patient deferred: visual exam *Routine Exam Comments: Normal Mol[place] V male, Madden in place *Routine Extremities Exam Extremities: Present edema (1+ to knees with wrinkling of skin) and extremity cold to touch; Absent cyanosis or clubbing Comments: Bilateral lower extremities cool to touch with mottling/livedo reticularis; significant erythema bilateral feet from ankle down with open wounds in between toes draining purulent material Routine Back/Spine/Pelvis Exam Back/Spine: Absent CVA tenderness Comments: Decubitus wound over sacrum *Routine Skin Exam Skin: Present erythema, pallor, mottling (Bilateral lower extremities most prominent), warm and rash *Routine Neurological Exam Neurological: Present alert, altered mental status and moving all extremities Meds Home Medications and Allergies New Prescriptions to Start Prescriptions: Allergies Allergy/AdvReac Type Severity Reaction Status Date / Time Unable to Assess Allergy Verified 02/05/24 13:34 Results Labs 02/05/24 12:50 02/05/24 12:50 Labs: Abnormal lab results 02/05/24 02/05/24 02/05/24 Range/Units 12:50 13:28 16:24 RBC 4.01 L (4.60-6.20) M/mm3 Hgb 12.8 L (14.1-18.0) g/dL Hct 38.2 L (42.0-52.0) % MCV 95.1 H (80-94) fl MCH 31.9 H (27.0-31.2) pg Neut % (Auto) 91.8 H (37.0-80.0) % Lymph % (Auto) 4.7 L (10-50) % Neut # (Auto) 9.2 H (1.8-7.8) K/mm3 Lymph # (Auto) 0.5 L (0.7-4.5) K/mm3 Neutrophils % (Manual) 96 H (42-76) % Lymphocytes % (Manual) 2 L (10-50) % VBG HCO3 19.0 L (23-30) mmol/L VBG Total CO2 20.2 L (23-27) mmol/L VBG Base Excess -7.2 L (-2.4-2.3) mmol/L VBG Lactic Acid 3.9 H (0.4-2.0) mmol/L Sodium 126 L (136-145) mmol/L Potassium 5.2 H (3.5-5.1) mmoL/L Chloride 94 L (98-107) mmol/L Carbon Dioxide 20 L (22.0-30.0) mmol/L Anion Gap 17.2 H (5-15) mEq/L BUN 118 H* (9-20) mg/dl Creatinine 2.50 H (0.66-1.25) mg/dl Estimated GFR 25 L (>60) ml/min Est GFR ( Amer) 31 L (>60) ML/MIN Glucose 127 H (74-100) mg/dl Lactate 3.8 H (0.7-2.1) mmol/L Magnesium 2.4 H (1.6-2.3) mg/dl Total Bilirubin 1.7 H (0.2-1.3) mg/dl NT-Pro-B Natriuret Pep 44516 H (0-125) pg/mL Albumin 3.4 L (3.5-5.0) g/dl Urine Bilirubin 1+ A (Negative) Ur Leukocyte Esterase 1+ A (Negative) Salicylates < 1.0 L (2.0-20.0) mg/dL Acetaminophen < 10 L (10-30) ug/ml H & H 02/05/24 Range/Units 12:50 Hgb 12.8 L (14.1-18.0) g/dL Hct 38.2 L (42.0-52.0) % Coagulation 02/05/24 Range/Units 12:50 INR 0.93 (0.9-1.1) All other labs normal. Assessment and Plan *Assessment and plan (1) Severe sepsis: Status: Acute Category: Medical Code(s): A41.9 - Sepsis, unspecified organism; R65.20 - Severe sepsis without septic shock (2) Acute hypoxemic respiratory failure: Status: Acute Category: Medical Code(s): J96.01 - Acute respiratory failure with hypoxia (3) Acute renal failure: Status: Acute Qualifiers: Acute renal failure type: unspecified Qualified Code(s): N17.9 - Acute kidney failure, unspecified Category: Medical Code(s): N17.9 - Acute kidney failure, unspecified (4) Peripheral vascular disease: Status: Acute Category: Medical Code(s): I73.9 - Peripheral vascular disease, unspecified (5) Cellulitis: Status: Acute Qualifiers: Site of cellulitis: extremity Site of cellulitis of extremity: lower extremity Laterality: unspecified laterality Qualified Code(s): L03.119 - Cellulitis of unspecified part of limb Category: Medical Code(s): L03.90 - Cellulitis, unspecified (6) Decubitus ulcer of sacral region, unstageable: Status: Acute Category: Medical Code(s): L89.150 - Pressure ulcer of sacral region, unstageable (7) Severe protein-calorie malnutrition: Status: Acute Category: Medical Code(s): E43 - Unspecified severe protein-calorie malnutrition (8) Cardiomegaly: Status: Chronic Category: Medical Code(s): I51.7 - Cardiomegaly (9) Tobacco use disorder: Status: Chronic Category: Medical Code(s): F17.200 - Nicotine dependence, unspecified, uncomplicated (10) COPD (chronic obstructive pulmonary disease): Status: Chronic Qualifiers: COPD type: unspecified COPD Qualified Code(s): J44.9 - Chronic obstructive pulmonary disease, unspecified Category: Medical Code(s): J44.9 - Chronic obstructive pulmonary disease, unspecified (11) DDD (degenerative disc disease): Problem Comment: multilevel Status: Chronic Category: Medical Plan Mr. Meadows is a 73-year-old male who presented after being found at home by neighbors. Unknown period of time that he was down. Unknown baseline level of health. At this time he presents with severe sepsis in the setting of cellulitis and new hypoxemic respiratory failure. qSOFA score of 2, sofa score of 7. Patient's respiratory rate is 24, source of infection with cellulitis, endorgan damage with acute kidney failure, respiratory failure, peripheral vascular disease, lactate 3.7, and severely elevated BNP of 50,000. Patient is medically complex and best served by higher level of care at a tertiary center. Strong concern for further decompensation. Initiated on appropriate antibiotics with vancomycin and Zosyn for his sepsis. Cultures have been obtained. Recommend continued gentle hydration for his renal failure. Appears to have some mild encephalopathy likely metabolic from uremia. Monitor for improvement with continued hydration and treatment of his respiratory failure and renal failure. Continue supplemental oxygen as needed for goal sats greater 90%. Would benefit from DuoNebs every 4 hours scheduled. Will need a minimum a podiatry consult for infection on his feet. Would also benefit from vascular consult to evaluate peripheral artery disease no strong concern his wounds on his feet have low potential to heal without improved peripheral circulation. Given the mottling in his legs and poor pulses on exam, his wounds are concerning for component of arterial insufficiency. Acute renal failure with BUN 118, creatinine 2.5, Madden in place, monitoring urine output. Urine is dark and cloudy.; Recommend avoiding NSAIDs or nephrotoxins Acute hypoxemic respiratory failure in the setting of COPD and tobacco use. Continue supplemental oxygen for goal sats greater 90%. DuoNebs every 4 hours. Recommend budesonide twice daily. Repeat chest imaging in 24 to 48 hours after adequate fluid resuscitation. CT of chest does show concern for infectious process. Broad coverage for sepsis with Vanco and Zosyn should cover for respiratory source. Cellulitis/peripheral arterial ulcers: Blood cultures obtained. Continue broad- spectrum antibiotics. Consider podiatry, vascular, orthopedics consults to address wounds and underlying vascular disease impacting ability to heal Patient will likely need case management assistance with placement if he improves to the point of discharge from inpatient acute care facility. Cardiomegaly/elevated BNP: BNP greater than 50,000. Cardiomegaly on chest imaging. Would benefit from formal echo. Hold on blood pressure medications at this time. Per review of chest CT, appears to have significant coronary artery calcification and possible stents. Would benefit from cardiology eval and goal- directed therapy if and when condition improves. Recommend attempted transfer. If unable to transfer, will reevaluate admitting and addressing the problems we are able to handle at our institution until patient declares himself further necessitating higher level of care or potentially shows improvement.
[2024-02-05 16:59] LABS: Benzodiazepines Screen,Urine Negative ng/ml (<200)
[2024-02-05 16:59] LABS: Reflex Lactic Add Lactic Reflex
[2024-02-05 17:00] LABS: Amphetamine/Metha Screen,Urine Negative ng/ml (<1000); Barbiturates Screen,Urine Negative ng/ml (<200)
[2024-02-05 17:01] LABS: Cannabinoid Screen,Urine Negative ng/ml (<50)
[2024-02-05 17:02] LABS: Cocaine Screen,Urine Negative ng/ml (<300); Methadone Screen,Urine Negative ng/ml (<300)
[2024-02-05 17:03] LABS: Opiate Screen,Urine Negative ng/ml (<300)
[2024-02-05 17:04] LABS: Phencyclidine Screen,Urine Negative ng/ml (<25)
--- NOTE | 2024-02-05 17:08 | PC.NURSE ---
calling [facility] at this time.
--- NOTE | 2024-02-05 17:11 | PC.NURSE ---
call made to [facility] transfer [facility] for possible transfer
[2024-02-05 17:12] LABS: Fine Granular Casts,Urine Occasional #/lpf (0)
[2024-02-05 17:50] LABS: Potassium 4.4 mmoL/L (3.5-5.1)
[2024-02-05 17:54] LABS: Lactic Acid Follow Up (RFLX 1) 1.8 mmol/L (0.7-2.1)
--- NOTE | 2024-02-05 18:47 | PC.NURSE ---
Corinne from [facility] call to confirm if patient found a bed
--- NOTE | 2024-02-05 19:36 | PC.NURSE ---
CAlled report to GOLF CADDIEADALI Garay at [facility], Pt is going by ground ems, [facility] aware [place] transfer at at 1930 and will send truck back after shift change per nataly lund medic, pt is resting quietly and being monitored
--- NOTE | 2024-02-05 19:36 | PC.NURSE ---
Pt's family friend Corinne called asking for an update.
--- NOTE | 2024-02-05 20:52 | PC.NURSE ---
Ems on scene to transfer patient to [facility] icu, rn called [facility] to let them know of patient depature and also rn called and left voicemail with pt emergency contact in chart to let him know that patient had been transferred to [facility] due to needing services we cant provide here at this facility and to call back with any questions
--- NOTE | 2024-02-07 10:37 | PC.NURSE ---
blood culture sent to [facility] [phone]
--- NOTE | 2024-02-07 11:12 | PC.NURSE ---
BLOOD CULTURE RESULTS FAXED TO [facility] [phone]
== END 2024-02-05 20:57 | disposition other institution (70) ==
PROVIDERS: Emergency Provider Emergency Medicine
DX: A41.01 Sepsis due to Methicillin susceptible Staphylococcus aureus (principal); R65.20 Severe sepsis without septic shock; J96.01 Acute respiratory failure with hypoxia; N17.9 Acute kidney failure, unspecified; I73.9 Peripheral vascular disease, unspecified; L03.115 Cellulitis of right lower limb; L89.150 Pressure ulcer of sacral region, unstageable; E43 Unspecified severe protein-calorie malnutrition; I51.7 Cardiomegaly; J44.1 Chronic obstructive pulmonary disease with (acute) exacerbation; G93.49 Other encephalopathy; E87.1 Hypo-osmolality and hyponatremia; E87.6 Hypokalemia; R74.02 Elevation of levels of lactic acid dehydrogenase [LDH]; F17.210 Nicotine dependence, cigarettes, uncomplicated; L03.116 Cellulitis of left lower limb; B87.1 Wound myiasis; Z23 Encounter for immunization
CPT/HCPCS: 51702; 70450; 71250; 72125; 72128; 72131; 72192; 73610; 73630; 74176; 80050; 80053; 80307; 80320; 80329; 81001; 82550; 82803; 83605; 83735; 83880; 84132; 84439; 84443; 85007; 85025; 85610; 86850; 87040; 87077; 87086; 90471; 90715; 93005; 96365; 96366; 96367; 99291; G0480; J2543; J7120